=== PATIENT | female | born 1945 | race Caucasian/White ===

== ENCOUNTER → 2021-10-08 | Outpatient (CLI) | payer OTHER | LOC: ECHO 13:15 → HEART 5 13:37 | DX: R55 Syncope and collapse (principal) ==

== ENCOUNTER → 2021-10-28 | Outpatient (CLI) | payer OTHER | LOC: HEART 5 11:00 | DX: R55 Syncope and collapse (principal); I27.20 Pulmonary hypertension, unspecified; I08.3 Combined rheumatic disorders of mitral, aortic and tricuspid valves | CPT/HCPCS: 93306 ==